=== PATIENT | female | born 1995 | race Caucasian/White ===

== ENCOUNTER 2018-10-10 19:56 | Emergency (ER) | payer OTHER ==
[2018-10-10 20:51] VITALS: BP 146/88
--- NOTE | 2018-10-10 21:03 | UC ---
Throat Pain/Nasal Jarod HPI - HPI Summary HPI Summary: Pt with 5 days progressive congestion, PND, sinus pressure and ear pain. Pt with sore throat and non productive cough. Today develope erythema left eye with yellow drainage. no fever, chills, + contact + OTC decongestant Not Medicaitons reviewed this visit - History of Current Complaint Chief Complaint: UCRespiratory Stated Complaint: SORE THROAT,B/L EAR COMPLAINT Time Seen by Provider: 10/10/18 20:59 Hx Last Menstrual Period: 04/27/17 Pain Intensity: 8 - Allergies/Home Medications Allergies/Adverse Reactions: Allergies Allergy/AdvReac Type Severity Reaction Status Date / Time amoxicillin Allergy Rash Verified 10/10/18 20:46 cefaclor [From Ceclor] Allergy Rash Verified 10/10/18 20:46 Penicillins Allergy Rash Verified 10/10/18 20:46 Home Medications: Home Medications Ethynodiol D-Ethinyl Estradiol [Kelnor 1-50 Tablet] 1 tab DAILY 10/10/18 [ History Confirmed 10/10/18] Levothyroxine TAB* [Synthroid TAB*] 25 mcg PO DAILY 10/10/18 [History Confirmed 10/10/18] Omeprazole 40 mg PO DAILY 10/10/18 [History Confirmed 10/10/18] PMH/Surg Hx/FS Hx/Imm Hx Previously Healthy: Yes - Surgical History Surgical History: Yes Surgery Procedure, Year, and Place: TUBES EARS. gallbladder - Family History Known Family History: Positive: None, Non-Contributory - Social History Occupation: Employed Full-time Lives: With Family Alcohol Use: Occasionally Substance Use Type: None Smoking Status (MU): Never Smoked Tobacco Review of Systems All Other Systems Reviewed And Are Negative: Yes Constitutional: Positive: Fatigue. Negative: Fever ENT: Positive: Sore Throat, Ear Ache, Nasal Discharge, Sinus Congestion, Sinus Pain/Tenderness Respiratory: Positive: Cough. Negative: Shortness Of Breath Cardiovascular: Positive: Negative Physical Exam - Summary Physical Exam Summary: Vital Signs Reviewed: Yes A+Ox3, congestion Eyes: left eye + erythema, yellow discharge at medial canthys, GERMAINE. EOM intact and full, no photophobia. ENT: Hearing grossly normal, fluid left TM + erythema, turbinates inflammed, boggy, + PND, mmoist, uvula midline, no exudate, no erythema Neck: Positive: Supple Respiratory: Positive: No respiratory distress, No accessory muscle use, scattered wheeze, intermittent cough Cardiovascular: RRR nl s1, s2 no m/r CBT <2 sec abd soft + BS nt/nd no guarding, no distension Musculoskeletal Exam: TAYLOR x 4 without difficulty Strength Intact, ROM Intact Neurological: Positive: Alert, + sensation throughout Psychological: Positive: Normal Response To Family Skin: Positive: no rash, no ecchymosis Triage Information Reviewed: Yes Vital Signs: Initial Vital Signs Temp 97.6 F 10/10/18 20:48 Pulse 92 10/10/18 20:48 Resp 16 10/10/18 20:48 BP 146/88 10/10/18 20:48 Pulse Ox 99 10/10/18 20:48 Throat Pain/Nasal Course/Dx - Course Course Of Treatment: Pt presents with progressive congestion, ear pain, sore throat and cough x 5 days. Pt devleope erythema, itch, drainage left eye today + sick contacts VS- mild elevated BP - recommend pcp f/u pt with otitis media, clinical sinussitis and left eye conjunctivitis abx eye drop (no contact lens weare) hydrate motrin/apap secretions decongestant return precautions - Differential Dx/Diagnosis Provider Diagnosis: Otitis media, Upper respiratory infection, Conjunctivitis Discharge - Sign-Out/Discharge Documenting (check all that apply): Patient Departure All imaging exams completed and their final reports reviewed: No Studies - Discharge Plan Condition: Stable Disposition: HOME Prescriptions: DOXYcycline CAP(*) [DOXYcycline 100MG CAP(*)] 100 mg PO BID #19 cap Patient Education Materials: Ear Infection (ED), Upper Respiratory Infection ( ED), Conjunctivitis (ED) Referrals: Belinda Davila MD [Primary Care Provider] - Additional Instructions: - Stay well hydrated. Drink plenty of non-alcoholic, non-caffinated beverages. - Alternate ibuprofen (Advil, Motrin) 600mg and Tylenol every 3 hours for pain or fever. Take with food. Do NOT take for more than 4-5 days. - These infections are spread by secretions - do NOT share eating or drinking utensils - clean items you share with other people such as cell phones, computer mouse, TV remote, computer tablets,etc. After you have been on antibiotics for 2 days, change your toothbrush and your pillowcase. - get plenty of restful sleep - humidify the air in the room where you sleep - boil water, run a hot steam shower, vaporizer, cups of water by heat register - okay to take over the counter decongestant and cough medication - take antibiotics as prescribed until gone - contact your doctor or return with questions or concerns - Billing Disposition and Condition Condition: STABLE Disposition: Home
[2018-10-10] MEDS ORDERED: DOXYcycline CAP(*) 100 MG PO ONE (21:27)
[2018-10-10] MEDS ORDERED: Polymyx/Trimethoprim OPTH* 10 ML BTL RIGHT EYE ONE (21:33)
== END 2018-10-10 21:47 | disposition home or self-care (01) ==
LOC: UCCORT 19:56
DX: H66.90 Otitis media, unspecified, unspecified ear (principal); J06.9 Acute upper respiratory infection, unspecified; H10.32 Unspecified acute conjunctivitis, left eye; Z88.1 Allergy status to other antibiotic agents; Z88.0 Allergy status to penicillin
CPT/HCPCS: 87651; 99212; A9270-GY; G0463

== ENCOUNTER 2018-12-27 16:54 | Emergency (ER) | payer OTHER ==
[2018-12-27 17:16] VITALS: BP 145/74
--- NOTE | 2018-12-27 17:28 | UC ---
Knee Pain HPI - HPI Summary HPI Summary: Pt c/o right knee pain that began after sitting on the floor with both legs stretched out infront of her for a prolonged period of time then she kneeled on the right knee and had a sudden onset of sharp pain in anterior right knee followed by swelling and numbness the day after she kneeled. Pt states that she has been elevating her knee and resting it and the pain and numbness have improved but is concerned "that something is seriously wrong" - History of Current Complaint Chief Complaint: UCLowerExtremity Stated Complaint: RIGHT KNEE PAIN Time Seen by Provider: 12/27/18 17:21 Hx Obtained From: Patient Hx Last Menstrual Period: 12/18/18 ?: No Onset/Duration: Sudden Onset, Lasting Days, Other - pain and numbness is improving Severity Initially: Moderate Severity Currently: Mild Pain Intensity: 3 Character: Sharp, Dull Aggravating Factor(s): Movement, Weight Bearing Alleviating Factor(s): Rest, Position Associated Signs And Symptoms: Positive: Swelling, Numbness, Tingling Able to Bear Weight: Yes - Risk Factors Septic Arthritis Risk Factor: Negative Gout Risk Factor: Obesity - Allergies/Home Medications Allergies/Adverse Reactions: Allergies Allergy/AdvReac Type Severity Reaction Status Date / Time amoxicillin Allergy Rash Verified 12/27/18 17:08 cefaclor [From Ceclor] Allergy Rash Verified 12/27/18 17:08 Penicillins Allergy Rash Verified 12/27/18 17:08 PMH/Surg Hx/FS Hx/Imm Hx Previously Healthy: Yes - Surgical History Surgical History: Yes Surgery Procedure, Year, and Place: TUBES EARS. gallbladder - Family History Known Family History: Positive: Non-Contributory - Social History Occupation: Unemployed Lives: With Family Alcohol Use: Occasionally Substance Use Type: None Smoking Status (MU): Never Smoked Tobacco Have You Smoked in the Last Year: No - Immunization History Vaccination Up to Date: Yes Review of Systems All Other Systems Reviewed And Are Negative: Yes Constitutional: Positive: Negative Skin: Positive: Negative Eyes: Positive: Negative ENT: Positive: Negative Respiratory: Positive: Negative Cardiovascular: Positive: Negative Gastrointestinal: Positive: Negative Genitourinary: Positive: Negative Motor: Positive: Negative Neurovascular: Positive: Negative Musculoskeletal: Positive: Arthralgia - right knee, Edema - resolved, Myalgia - right knee Neurological: Positive: Negative Psychological: Positive: Negative Is Patient Immunocompromised?: No Physical Exam Triage Information Reviewed: Yes Appearance: Well-Appearing, Obese Vital Signs: Initial Vital Signs Temp 97.1 F 12/27/18 17:09 Pulse 99 12/27/18 17:09 Resp 20 12/27/18 17:09 BP 145/74 12/27/18 17:09 Pulse Ox 97 12/27/18 17:09 Vital Signs Reviewed: Yes Eye Exam: Normal ENT Exam: Normal ENT: Positive: Hearing grossly normal Dental Exam: Normal Neck exam: Normal Respiratory Exam: Normal Respiratory: Positive: No respiratory distress Musculoskeletal Exam: Normal Musculoskeletal: Positive: Strength Intact, ROM Intact, No Edema Neurological Exam: Normal Psychological Exam: Normal Skin Exam: Normal Knee Pain Course/Dx - Differential Dx/Diagnosis Differential Diagnosis/HQI/PQRI: Contusion, Sprain, Strain Provider Diagnosis: Right anterior knee pain Discharge - Sign-Out/Discharge Documenting (check all that apply): Patient Departure All imaging exams completed and their final reports reviewed: No Studies - Discharge Plan Condition: Stable Disposition: HOME Patient Education Materials: Knee Pain (ED), Ice Pack Application (ED), Safe Use of NSAIDs (ED) Referrals: Belinda Davila MD [Primary Care Provider] - If Needed - Billing Disposition and Condition Condition: STABLE Disposition: Home - Attestation Statements Provider Attestation: Per institutional requirements, I have reviewed the chart, however, I was not consulted specifically or made aware of this patient by the midlevel provider. I did not personally evaluate, interact with , or disposition this patient.
== END 2018-12-27 17:36 | disposition home or self-care (01) ==
LOC: UCCORT 16:54
DX: M25.561 Pain in right knee (principal)
CPT/HCPCS: 99211; G0463

== ENCOUNTER 2019-02-17 18:24 | Emergency (ER) | payer OTHER ==
[2019-02-17 18:42] VITALS: BP 134/90
--- NOTE | 2019-02-17 19:02 | UC ---
Lower Extremity/Ankle HPI - HPI Summary HPI Summary: 23-year-old woman comes in with a chief complaint of left leg swelling and intermittent numbness. Patient reports that her left calf and lower leg feels swollen compared to the right 1. Been going on for several months. She occasionally gets some numbness in the lower leg. Denies any weakness. Denies any pain. Patient is on a control pill. She denies any prior history of deep venous thrombosis. No complaint of chest pain or shortness of breath. Denies any back pain. - History of Current Complaint Chief Complaint: UCLowerExtremity Stated Complaint: LT LEG NUMBNESS AND SWELLING Time Seen by Provider: 02/17/19 18:37 Hx Last Menstrual Period: 01/24/19 Pain Intensity: 0 - Allergies/Home Medications Allergies/Adverse Reactions: Allergies Allergy/AdvReac Type Severity Reaction Status Date / Time amoxicillin Allergy Rash Verified 02/17/19 18:34 cefaclor [From Ceclor] Allergy Rash Verified 02/17/19 18:34 Penicillins Allergy Rash Verified 02/17/19 18:34 PMH/Surg Hx/FS Hx/Imm Hx Previously Healthy: Yes Endocrine History: Hypothyroidism GI/ History: Gastroesophageal Reflux - Surgical History Surgical History: Yes Surgery Procedure, Year, and Place: TUBES EARS. gallbladder - Family History Known Family History: Positive: None, Non-Contributory - Social History Alcohol Use: Occasionally Substance Use Type: None Smoking Status (MU): Never Smoked Tobacco Have You Smoked in the Last Year: No - Immunization History Vaccination Up to Date: Yes Review of Systems All Other Systems Reviewed And Are Negative: Yes Constitutional: Positive: Negative Skin: Positive: Other - SEE HPI Eyes: Positive: Negative ENT: Positive: Negative Respiratory: Positive: Negative Gastrointestinal: Positive: Negative Motor: Positive: Negative Neurovascular: Positive: Decreased Sensation Musculoskeletal: Positive: Edema. Negative: Calf Tenderness Neurological: Positive: Other - SEE HPI Psychological: Positive: Negative Is Patient Immunocompromised?: No Physical Exam Triage Information Reviewed: Yes Appearance: Well-Appearing, No Pain Distress, Well-Nourished Vital Signs: Initial Vital Signs Temp 97.7 F 02/17/19 18:35 Pulse 90 02/17/19 18:35 Resp 16 02/17/19 18:35 BP 134/90 02/17/19 18:35 Pulse Ox 99 02/17/19 18:35 Vital Signs Reviewed: Yes Eye Exam: Normal Eyes: Positive: Conjunctiva Clear Neck: Positive: Supple Respiratory: Positive: No respiratory distress Musculoskeletal: Positive: Other: - On examination the left calf does appear larger in diameter than the right calf. Mid calf dimensions on the right 48 cm in the left 50 cm. Calf is nontender to palpation. Ankle and knee have full range of motion full-strength. Back is nontender to palpation. Normal capillary refill. No sensation deficit found on examination here in clinic tonight. Neurological: Positive: Alert Psychological: Positive: Age Appropriate Behavior Skin Exam: Normal Lower Extremity Course/Dx - Course Course Of Treatment: Due to the swollen left calf I recommended getting a venous Doppler ultrasound exam to rule out DVT. We do not have ultrasound at this time the clinic so I recommended going to the emergency department for the ultrasound. I let her know that if the ultrasound did not show blood clot I would recommend follow-up with sports medicine for further evaluation of the intermittent paresthesia and calf swelling. - Differential Dx/Diagnosis Provider Diagnosis: Swelling of left lower extremity, Numbness in left leg Discharge - Sign-Out/Discharge Documenting (check all that apply): Patient Departure All imaging exams completed and their final reports reviewed: No Studies - Discharge Plan Condition: Stable Disposition: HOME-RECOMMEND TO ED Patient Education Materials: Leg Edema (ED) Referrals: Belinda Davila MD [Primary Care Provider] - [facility] [Provider Group] Additional Instructions: GO TO THE EMERGENCY DEPARTMENT FOR AN ULTRASOUND OF YOUR LEFT LEG TO EVALUATE FOR A BLOOD CLOT. IF THERE IS NO BLOOD CLOT, FOLLOW UP WITH SPORTS MEDICINE. GET REEVALUATED SOONER IF WORSE OR ANY QUESTIONS OR CONCERNS. - Billing Disposition and Condition Condition: STABLE Disposition: Home-Recommend to ED
== END 2019-02-17 19:08 | disposition home health service (06) ==
LOC: UCCORT 18:24
DX: M79.89 Other specified soft tissue disorders (principal); R20.0 Anesthesia of skin
CPT/HCPCS: 99212; G0463

== ENCOUNTER 2019-02-18 09:02 | Emergency (ER) | payer OTHER ==
[2019-02-18 09:37] VITALS: BP 136/50
--- NOTE | 2019-02-18 11:27 | UC ---
Lower Extremity/Ankle HPI - HPI Summary HPI Summary: 23-year-old woman comes in with a chief complaint of left calf swelling and occasional numbness. Been going on for months. Recently the numbness has been occurring intermittently. She feels like her left calf is larger than her right calf. She is on control pills. No pain no chest pain no shortness of breath. No history of DVT. - History of Current Complaint Chief Complaint: UCLowerExtremity Stated Complaint: RE-CK LEFT LEG Time Seen by Provider: 02/18/19 09:56 Hx Last Menstrual Period: 01/24/19 Pain Intensity: 0 - Allergies/Home Medications Allergies/Adverse Reactions: Allergies Allergy/AdvReac Type Severity Reaction Status Date / Time amoxicillin Allergy Rash Verified 02/18/19 09:33 cefaclor [From Ceclor] Allergy Rash Verified 02/18/19 09:33 Penicillins Allergy Rash Verified 02/18/19 09:33 PMH/Surg Hx/FS Hx/Imm Hx Previously Healthy: Yes - Surgical History Surgical History: Yes Surgery Procedure, Year, and Place: TUBES EARS. gallbladder - Family History Known Family History: Positive: None, Non-Contributory - Social History Alcohol Use: Occasionally Substance Use Type: None Smoking Status (MU): Never Smoked Tobacco Have You Smoked in the Last Year: No - Immunization History Vaccination Up to Date: Yes Review of Systems All Other Systems Reviewed And Are Negative: Yes Constitutional: Positive: Negative Skin: Positive: Negative Eyes: Positive: Negative ENT: Positive: Negative Respiratory: Positive: Negative Cardiovascular: Positive: Negative Gastrointestinal: Positive: Negative Motor: Positive: Negative Neurovascular: Positive: Negative Musculoskeletal: Positive: Edema. Negative: Calf Tenderness Neurological: Positive: Negative Psychological: Positive: Negative Is Patient Immunocompromised?: No Physical Exam Triage Information Reviewed: Yes Appearance: Well-Appearing, No Pain Distress, Well-Nourished Vital Signs: Initial Vital Signs Temp 97.3 F 02/18/19 09:33 Pulse 80 02/18/19 09:33 Resp 17 02/18/19 09:33 BP 136/50 02/18/19 09:33 Pulse Ox 100 02/18/19 09:33 Vital Signs Reviewed: Yes Eye Exam: Normal Eyes: Positive: Conjunctiva Clear Neck: Positive: Supple Respiratory: Positive: No respiratory distress Musculoskeletal: Positive: Other: - Left calf is slightly larger than the right calf. Nontender palpation no erythema. He is full range of motion there is no knee pain or thigh pain or back pain. Normal capillary refill normal sensation. Full strength of the legs. Neurological: Positive: Alert Psychological: Positive: Age Appropriate Behavior Skin Exam: Normal Lower Extremity Course/Dx - Course Course Of Treatment: Patient Name: ROGELIO HUBBARD Medical Record#: [id number] Ordering Physician: Jewel Brown MD Acct.#: [id number] : 1995 Age: 23 Sex: F Location: [facility] Exam Date: 02/18/19956 ADM Status: REG ER Order Information: VL LOWER EXT VEINS LEFT Accession Number: [id number] CPT: 09298 INDICATION: Left calf swelling. COMPARISON: There are no relevant prior studies available for comparison. TECHNIQUE: Multiple real-time, color flow and Doppler tracings of the left lower extremity were obtained. FINDINGS: The common femoral, femoral, profunda femoral and popliteal veins all demonstrate normal compressibility, augmentation with compression and phasic response with respiration. The posterior tibial and peroneal veins demonstrate normal compressibility and augmentation with compression. IMPRESSION: NO EVIDENCE FOR DEEP VENOUS THROMBOSIS. <Electronically signed by Manoj Medina MD in OV> 02/18/19 1112 I discussed the ultrasound report with the patient. We discussed further her symptoms. She will be no that she's gained a lot of weight in the last year and also has noticed that he intermittent numbness gets better if she extends her leg. She is wondering if the weight gain has do with her symptoms. We discussed starting exercising and stretching. Overall the plan is to follow-up sports medicine if not improved. - Differential Dx/Diagnosis Provider Diagnosis: Left leg swelling, Paresthesia of left leg Discharge - Sign-Out/Discharge Documenting (check all that apply): Patient Departure All imaging exams completed and their final reports reviewed: Yes - Discharge Plan Condition: Stable Disposition: HOME Patient Education Materials: Paresthesia (ED), Leg Edema (ED) Referrals: Belinda Davila MD [Primary Care Provider] - [facility] [Provider Group] Additional Instructions: FOLLOW UP WITH SPORTS MEDICINE IF NOT COMPLETELY IMPROVED. GET REEVALUATED SOONER IF WORSE; PAIN, SHORTNESS OF BREATH, CHEST PAIN, YOU FEEL ILL OR ANY QUESTIONS OR CONCERNS. - Billing Disposition and Condition Condition: STABLE Disposition: Home
== END 2019-02-18 11:43 | disposition home or self-care (01) ==
LOC: UCCORT 09:02
DX: M79.89 Other specified soft tissue disorders (principal); R20.2 Paresthesia of skin
CPT/HCPCS: 99211; G0463